=== PATIENT | male | born 1985 | race Caucasian/White ===

== ENCOUNTER 2017-07-11 08:52 | Emergency (ER) | payer OTHER ==
[~2017-07-11] VITALS: Ht 190.5 cm; Wt 78.8 kg
[~2017-07-11 08:52] MED LIST: MOBIC7.5 MG PO
[2017-07-11 12:18] VITALS: BP 112/73
== END 2017-07-11 12:19 | disposition home or self-care (01) ==
LOC: EME 08:52
PROC: 0HQGXZZ Repair Left Hand Skin, External Approach (ICD-10-PCS; principal; 2017-07-11)
DX: S61.412A Laceration without foreign body of left hand, initial encounter (principal); W31.2XXA Contact with powered woodworking and forming machines, initial encounter; Y92.69 Other specified industrial and construction area as the place of occurrence of the external cause; Y99.0 Civilian activity done for income or pay; F17.200 Nicotine dependence, unspecified, uncomplicated
CPT/HCPCS: 73130; 99281; 99284